=== PATIENT | female | born 1995 | race Caucasian/White ===

== ENCOUNTER 2017-05-06 16:29 | Emergency (ER) | payer OTHER ==
[2017-05-06 16:42] VITALS: BP 136/90; PULSE 93; TEMP 98.3; BMI 30.7
--- NOTE | 2017-05-06 16:48 | PDOC ---
Attending Attestation - Resident Resident Name: Vidal Pollack - ED Attending Attestation I have performed the following: I have examined & evaluated the patient, The case was reviewed & discussed with the resident, I agree w/resident's findings & plan, Exceptions are as noted - HPI HPI: 05/06/17 16:47 chest pain - Physicial Exam PE: 05/06/17 16:47 VSS/NAD/Anxious - Medical Decision Making 05/06/17 16:[address] Pollack's Assessment and Plan
--- NOTE | 2017-05-06 17:02 | PDOC ---
History of Present Illness - General Chief Complaint: Chest Pain Stated Complaint: Chest Pain Time Seen by Provider: 05/06/17 16:33 History Source: Patient Exam Limitations: No Limitations - History of Present Illness Initial Comments: 05/06/17 16:52 The patient is a 21F with a PMH of PCOS and asthma who presents with chest pain. The pain is retrosternal, nonradiating, chest pain that does not get better or worse with anything. The pain came on once 4 days ago but was only for a brief period of time. Today, the pain has been constant since the morning. Prior to 4 days ago, this has never happened before. 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 She states that she does get short of breath with exertion since the pain started. Past History - Past Medical History Allergies/Adverse Reactions: Allergies Allergy/AdvReac Type Severity Reaction Status Date / Time peanut Allergy Verified 08/08/16 08:58 Home Medications: Ambulatory Orders Estradiol/Norethindrone Acet [Estradiol-Noreth 1-0.5 mg Tab] 1 ea PO DAILY 08/08 Asthma: Yes Other medical history: PCOS - Psycho/Social/Smoking Cessation Hx Anxiety: No Suicidal Ideation: No Smoking History: Never smoked Have you smoked in the past 12 months: No Information on smoking cessation initiated: No Hx Alcohol Use: No Drug/Substance Use Hx: No Substance Use Type: None Review of Systems - Review of Systems Able to Perform ROS?: Yes Is the patient limited Bangl[place]hi proficient: No Constitutional: No: Chills, Fever HEENTM: No: Nose Pain, Throat Pain, Difficulty Swallowing Respiratory: Yes: Shortness of Breath (with exertion). No: Cough Cardiac (ROS): Yes: Chest Pain. No: Lightheadedness, Palpitations, Syncope ABD/GI: No: Nausea, Vomiting : No: Burning, Dysuria Neurological: No: Headache, Numbness, Tingling, Weakness *Physical Exam - Vital Signs Last Vital Signs Temp Pulse Resp BP Pulse Ox 98.3 F 93 H 20 136/90 100 05/06/17 16:36 05/06/17 16:36 05/06/17 16:36 05/06/17 16:36 05/06/17 16:36 - Physical Exam General Appearance: Yes: Nourished, Appropriately Dressed. No: Apparent Distress, Disheveled, Severe Distress HEENT: positive: Normal Voice, Hearing Grossly Normal Respiratory/Chest: positive: Lungs Clear, Normal Breath Sounds. negative: Chest Tender, Respiratory Distress, Labored Respiration Cardiovascular: positive: Regular Rhythm, Regular Rate, S1, S2. negative: Diastolic Murmur, Systolic Murmur, Irregularly Irregular Gastrointestinal/Abdominal: positive: Flat, Soft. negative: Tender, Distended, Guarding, Rebound, Tenderness Musculoskeletal: negative: CVA Tenderness, CVA Tenderness (R), CVA Tenderness (L ) Integumentary: positive: Dry, Warm. negative: Cold, Clammy, Swelling Neurologic: positive: Fully Oriented, Alert, Normal Mood/Affect, Motor Strength 5/5 Heart Score/ECG Review - ECG Impressions Normal ECG: Yes Medical Decision Making - Medical Decision Making 05/06/17 19:31 The patient is a 21F with a hx of asthma and anxiety who presents to the ED with chest pain. The pain is atypical chest pain. EKG shows NSR. The pain is improving with toradol. 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 Patient is ready for d/c. *DC/Admit/Observation/Transfer Diagnosis at time of Disposition: Chest pain Qualifiers: Chest pain type: other chest pain Qualified Code(s): R07.89 - Other chest pain ; R07.8 - Other chest pain - Discharge Dispostion Disposition: HOME Condition at time of disposition: Improved Admit: No - Patient Instructions Printed Discharge Instructions: DI for Atypical Chest Pain, DI for Chest Pain Additional Instructions: Please return to the ER if symptoms persist, worsen, or if new symptoms arise. Print Language: [place] - Attestations Physician Attestion: 05/06/17 19:30 I, Dr. Vidal Pollack, attest that this document has been prepared under my direction and personally reviewed by me in its entirety. I further attest, that it accurately reflects all work, treatment, procedures and medical decision -making performed by me.
[2017-05-06] MEDS ORDERED: KETOROLAC TROMETHAMINE 60 MG/2 ML VIAL IM ONE (17:57)
[2017-05-06] MEDS ORDERED: KETOROLAC TROMETHAMINE 60 MG/2 ML VIAL ONE (18:52)
--- NOTE | 2017-05-07 11:48 | EKG ---
Test Reason : Blood Pressure : / mmHG Vent. Rate : 074 BPM Atrial Rate : 074 BPM P-R Int : 178 ms QRS Dur : 090 ms QT Int : 388 ms P-R-T Axes : 055 062 037 degrees QTc Int : 430 ms NORMAL SINUS RHYTHM POSSIBLE LEFT ATRIAL ENLARGEMENT BORDERLINE ECG NO PREVIOUS ECGS AVAILABLE REPEAR ECG IF INDICATED Confirmed by MIKAYLA CAPUTO MD ([id number]) on 05/07/2017 11:48:10 AM Referred By: Confirmed By:MIKAYLA CAPUTO MD
== END 2017-05-06 19:49 | disposition home or self-care (01) ==
LOC: JER 16:29
PROC: 3E0233Z Introduction of Anti-inflammatory into Muscle, Percutaneous Approach (ICD-10-PCS; principal; 2017-05-06)
DX: R07.89 Other chest pain (principal); J45.909 Unspecified asthma, uncomplicated; E28.2 Polycystic ovarian syndrome
CPT/HCPCS: 93005; 93010; 99282-25